=== PATIENT | female | born 1925 | race Caucasian/White ===

== ENCOUNTER 2016-09-11 14:57 | Emergency (ER) | payer BC ==
[~2016-09-11] VITALS: Ht 157.5 cm; Wt 69.3 kg
[~2016-09-11 14:57] MED LIST: ACET1TAB84 PO; AMLO-110 PO; ASPI-427 PO; CLOP1TAB5 PO; CYM/30 PO; DULO60CA44 PO; LISI10TA PO; LMC25 PO; LPR25 PO; MULT1CAP16 PO; NITR0.4S UT; OMEG12006 PO; PANT1TAB48 PO
[2016-09-11 15:04] VITALS: Ht 157.5 cm; Wt 69.3 kg
[2016-09-11] MEDS ORDERED: ACET-1256 PO (17:31)
[2016-09-11] MEDS ORDERED: CALC-452 PO (17:31)
[2016-09-11] MEDS ORDERED: SODIUM CHLORIDE 0.9% 1000ML 1,000 ML IV STA (17:33)
[2016-09-11] MEDS ORDERED: ACETAMINOPHEN 500 MG TAB PO STA (17:33)
[2016-09-11 18:13] LABS: BASO % 0.5 %; BASO ABS # 0.03 K/uL (0-0.2); COMPLETE YES; EOS % 1.8 %; HEMATOCRIT 33.2 % (37-47); IG% 0.3 %; LYMPH ABS # 1.69 K/uL (1.2-3.4); MEAN CORPUSCULAR HEMOGLOBIN 29.9 pg (25-34); MEAN CORPUSCULAR HGB CONC 32.8 g/dl (32-36); MEAN PLATELET VOLUME 9.7 fL (7.4-10.4); MONO % 12.3 %; NEUT % 57.1 %; PLATELET COUNT 264 K/uL (130-400); RED BLOOD COUNT 3.65 M/uL (4.2-5.4); WHITE BLOOD COUNT 6.04 K/uL (4.8-10.8)
[2016-09-11 18:31] LABS: BUN/CREATININE RATIO 16.3 (10-20); CALCIUM 9.1 mg/dl (8.5-10.1); CREATININE 1.1 mg/dl (0.60-1.20); POTASSIUM 4.1 mmol/L (3.5-5.1)
--- NOTE | 2016-09-11 18:39 | DIAGNOSTIC IMAGING REPORT ---
CHEST ONE VIEW PORTABLE HISTORY: Cough. Evaluate Fever/Sepsis COMPARISON: Chest 05/06/2014. Chest CT 06/30/2016. FINDINGS: The lungs are clear. No pleural effusions. No pneumothorax. The heart remains mildly enlarged. IMPRESSION: No acute process. Stable mild cardiomegaly. Electronically signed by: Devon Ramires M.D. 09/11/2016 6:38 PM Dictated Date/Time: 09/11/2016 6:36 PM
--- NOTE | 2016-09-11 19:14 | EMERGENCY ROOM VISIT NOTE ---
History Report prepared by Hamlet: Michael Toledo Under the Supervision of: Dr. Roberto Carlos Velásquez D.O. First contact with patient: 17:30 Chief Complaint: COUGH Stated Complaint: DIFFICULTY BREATHING, COUGH, SORETHROAT Nursing Triage Summary: pt reports cough, congestion and sore throat for approx 1 week, + mucus production clear in color History of Present Illness The patient is a 89 year old female who presents to the Emergency Room with complaints of a persistent productive cough beginning 3 days ago. Per son, the patient has also complained of intermittent episodes of dizziness, headache, and sore throat. The patient denies noticing any rashes on her body. She is on Plavix. Source of History: patient, family (son) Onset: 3 days ago Quality: other (productive cough) Timing: other (persistent) Associated Symptoms: + headache, + sorethroat, No rash Note: The patient has complained of intermittent episodes of dizziness. Review of Systems See HPI for pertinent positives & negatives. A total of 10 systems reviewed and were otherwise negative. Past Medical & Surgical Medical Problems: (1) Abdominal pain (2) Altered mental status (3) Chest pain (4) Diarrhea (5) Essential hypertension (6) Headache (7) Heart disease (8) Kidney disease (9) Myocardial infarction (10) Neck pain (11) Right ear pain (12) Right ear pain (13) Swallowing problem Surgical Problems: (1) History of spinal surgery Family History Diabetes mellitus FH: heart disease Hypertension Kidney disease Social History Smoking Status: Never Smoker Alcohol Use: none Drug Use: none Marital Status: Housing Status: lives alone Occupation Status: retired Current/Historical Medications Scheduled Acetaminophen (Tylenol), 500-1,000 MG PO Q8 Amlodipine (Norvasc), 5 MG PO QPM Aspirin (Ecotrin Regular Strength), 650 MG PO BID Calcium Carbonate-Cholecalcife (Calcium 600 + D 600-200 mg-Unit), 1 TAB PO BID Clopidogrel Bisulfate (Plavix), 75 MG PO QPM Duloxetine HCl (Cymbalta), 30 MG PO QPM Duloxetine Hcl (Cymbalta), 60 MG PO QAM Lamotrigine (Lamotrigine), 50 MG PO DAILY Lisinopril (Prinivil), 10 MG PO DAILY Metoprolol Tartrate (Lopressor), 25 MG PO DAILY Nitroglycerin (Nitrostat), 0.4 MG UT PRN Pres[place]-3 Fatty Acids (Presho 3), 1,000 MG PO BID Pantoprazole (Protonix), 40 MG PO DAILY Allergies Coded Allergies: Cefuroxime (Verified Allergy, Unknown, RASH, 09/11/16) Erythromycin (Verified Allergy, Unknown, RASH, 09/11/16) Iodine (Verified Allergy, Unknown, 09/11/16) Macrolides (Verified Allergy, Unknown, "MYCINS" ALLERGY, PT UNSURE OF RXN , 09/11/16) Morphine (Verified Allergy, Unknown, 09/11/16) Propoxyphene (Verified Allergy, Unknown, "SICK STROKE" WHAT DOES THIS MEAN ???, 09/11/16) Alcohol (Verified Adverse Reaction, Severe, TONGUE THICK, 09/11/16) Codeine (Verified Adverse Reaction, Intermediate, cant sleep, 09/11/16) Sulfa Drugs (Verified Adverse Reaction, Intermediate, N&V, 09/11/16) Shrimp (Verified Adverse Reaction, Unknown, NAUSEA, 09/11/16) Physical Exam Vital Signs Date Time Temp Pulse Resp B/P Pulse Ox O2 Delivery O2 Flow Rate FiO2 09/11/16 18:01 61 18 164/74 95 Room Air 09/11/16 17:51 60 09/11/16 15:04 36.4 72 20 114/75 98 Room Air Physical Exam CONSTITUTIONAL/VITAL SIGNS: Reviewed / noted above. GENERAL: Non-toxic in appearance. INTEGUMENTARY: Warm, dry, and [place]. HEAD: Normocephalic. EYES: without scleral icterus or trauma. ENT/OROPHARYNX: Mild posterior pharyngeal erythema. No exudate. LYMPHADENOPATHY/NECK: Is supple without lymphadenopathy or meningismus. RESPIRATORY: Lungs clear and equal. CARDIOVASCULAR: Regular rate and rhythm. GI/ABDOMEN: Soft and nontender. No organomegaly or pulsatile mass. No rebound or guarding. Normal bowel sounds. EXTREMITIES: Warm and well perfused. BACK: No CVA tenderness. NEUROLOGICAL: Intact without focal deficits. PSYCHIATRIC: normal affect. MUSCULOSKELETAL: Normally developed with good muscle tone. Medical Decision & Procedures ER Provider Diagnostic Interpretation: X ray results and stated below per my interpretation and radiology interpretation. CHEST ONE VIEW PORTABLE FINDINGS: The lungs are clear. No pleural effusions. No pneumothorax. The heart remains mildly enlarged. IMPRESSION: No acute process. Stable mild cardiomegaly. Electronically signed by: Devon Ramires M.D. 09/11/2016 6:38 PM Laboratory Results 09/11/16 17:53 Red Blood Count 3.65, Mean Corpuscular Volume 91.0, Mean Corpuscular Hemoglobin 29.9, Mean Corpuscular Hemoglobin Concent 32.8, Mean Platelet Volume 9.7, Neutrophils (%) (Auto) 57.1, Lymphocytes (%) (Auto) 28.0, Monocytes (%) (Auto) 12.3, Eosinophils (%) (Auto) 1.8, Basophils (%) (Auto) 0.5, Neutrophils # (Auto ) 3.45, Lymphocytes # (Auto) 1.69, Monocytes # (Auto) 0.74, Eosinophils # (Auto ) 0.11, Basophils # (Auto) 0.03 09/11/16 17:53 Test 09/11/16 17:53 White Blood Count 6.04 K/uL (4.8-10.8) Red Blood Count 3.65 M/uL (4.2-5.4) Hemoglobin 10.9 g/dL (12.0-16.0) Hematocrit 33.2 % (37-47) Mean Corpuscular Volume 91.0 fL (80-100) Mean Corpuscular Hemoglobin 29.9 pg (25-34) Mean Corpuscular Hemoglobin Concent 32.8 g/dl (32-36) Platelet Count 264 K/uL (130-400) Mean Platelet Volume 9.7 fL (7.4-10.4) Neutrophils (%) (Auto) 57.1 % Lymphocytes (%) (Auto) 28.0 % Monocytes (%) (Auto) 12.3 % Eosinophils (%) (Auto) 1.8 % Basophils (%) (Auto) 0.5 % Neutrophils # (Auto) 3.45 K/uL (1.4-6.5) Lymphocytes # (Auto) 1.69 K/uL (1.2-3.4) Monocytes # (Auto) 0.74 K/uL (0.11-0.59) Eosinophils # (Auto) 0.11 K/uL (0-0.5) Basophils # (Auto) 0.03 K/uL (0-0.2) RDW Standard Deviation 46.9 fL (36.4-46.3) RDW Coefficient of Variation 14.0 % (11.5-14.5) Immature Granulocyte % (Auto) 0.3 % Immature Granulocyte # (Auto) 0.02 K/uL (0.00-0.02) Anion Gap 8.0 mmol/L (3-11) Est Creatinine Clear Calc Drug Dose 31.6 ml/min Estimated GFR () 51.5 Estimated GFR (Non- 44.5 BUN/Creatinine Ratio 16.3 (10-20) Calcium Level 9.1 mg/dl (8.5-10.1) Influenza Type A Antigen Neg for Influ A (NEG) Influenza Type B Antigen Neg for Influ B (NEG) Laboratory results as stated above per my review. Medications Administered Medications (Trade) Dose Ordered Sig/Lauren Route Start Time Stop Time Status Last Admin Dose Admin Acetaminophen 1000 mg 1,000 mg NOW STAT PO 09/11/16 17:33 09/11/16 17:36 DC 09/11/16 17:45 1,000 MG Sodium Chloride (Nss 1000ml) 1,000 ml @ 999 mls/hr Q1H1M STAT IV 09/11/16 17:33 09/11/16 18:33 DC 09/11/16 17:33 999 MLS/HR ED Course 1730: Previous medical records were reviewed. The patient was evaluated in room B2. A complete history and physical examination was performed. 1733: Ordered NSS 1000 mL @ 999 mL/hr IV, Tylenol Tab 1000 mg PO. 1915: On reevaluation, the patient is resting comfortably. I discussed the results and findings with the patient. She verbalized agreement of the treatment plan. She was discharged home. Medical Decision Differential includes viral illness, influenza, streptococcal pharyngitis, meningitis, pneumonia, sinusitis, UTI, pyelonephritis, otitis media. This is an 89-year-old female who presents to the ED with a chief complaint of a cough for the past 3 days. She also complains of a sore throat and a headache and has some dizzy spells. She might be dehydrated. Her vital signs are normal. She is afebrile. Her physical exam was normal. She has some mild posterior oropharyngeal erythema without exudate. Chest x-ray is negative for acute disease. CBC is unremarkable. PRP is normal. Flu swab was negative. The patient was treated with IV fluids and by mouth Tylenol. She is felt to be stable for discharge and outpatient follow-up. Impression Primary Impression: Viral syndrome Additional Impression: Cough Scribe Attestation The scribe's documentation has been prepared under my direction and personally reviewed by me in its entirety. I confirm that the note above accurately reflects all work, treatment, procedures, and medical decision making performed by me. Departure Information Dispostion Home / Self-Care Referrals Tish Buenrostro DO (PCP) Patient Instructions A Signature Page, ED Viral Syndrome, My [facility] Additional Instructions Follow-up with your doctor for further care and evaluation in 1-2 days. Return to the emergency department for worsening or new symptoms or any concerns. You have been examined and treated today on an emergency basis only. This is not a substitute for, or an effort to provide, complete comprehensive medical care. It is impossible to recognize and treat all injuries or illnesses in a single emergency department visit. It is therefore important that you follow up closely with your doctor. Call as soon as possible for an appointment. Problem Qualifiers
[2016-09-11 19:31] VITALS: BP 134/60; PULSE 69; TEMP 36.4; O2SAT 95
[2017-01-31] MEDS ORDERED: CPR250 PO (10:41)
[2017-01-31] MEDS ORDERED: METO25TA56 PO (11:50)
== END 2016-09-11 19:32 | disposition home or self-care (01) ==
LOC: C.EDB 14:59
DX: B34.9 Viral infection, unspecified (principal); R05 Cough; I10 Essential (primary) hypertension; I25.2 Old myocardial infarction; R42 Dizziness and giddiness; Z79.02 Long term (current) use of antithrombotics/antiplatelets; Z79.82 Long term (current) use of aspirin; Z79.899 Other long term (current) drug therapy

== ENCOUNTER → 2017-01-10 | Outpatient (CLI) | payer BC ==
[~2017-01-10] MED LIST changes: +ACET-1256 PO; -ACET1TAB84 PO; +CALC-452 PO; +CIPR250T5 PO; +METO25TA56 PO; -MULT1CAP16 PO; +RISP0.258 PO; +RISP1TAB68 PO; +[UNRECOGNIZED DRUG - CODE] IM
[2017-01-10 12:54] LABS: ESTIMATED AVERAGE GLUCOSE 120 mg/dl; HA1C FLAG Normal (Normal)
[2017-01-10 13:08] LABS: HEMATOCRIT 33.2 % (37-47); MEAN CELL VOLUME 93.3 fL (80-100); MEAN CORPUSCULAR HEMOGLOBIN 30.1 pg (25-34); MEAN CORPUSCULAR HGB CONC 32.2 g/dl (32-36); MEAN PLATELET VOLUME 10.3 fL (7.4-10.4); PLATELET COUNT 316 K/uL (130-400); RED BLOOD COUNT 3.56 M/uL (4.2-5.4); WHITE BLOOD COUNT 5.94 K/uL (4.8-10.8)
[2017-01-10 15:39] LABS: BLOOD UREA NITROGEN 42 mg/dl (7-18); BUN/CREATININE RATIO 41.9 (10-20); CALCIUM 9.5 mg/dl (8.5-10.1); CARBON DIOXIDE 29 mmol/L (21-32); CHLORIDE 104 mmol/L (98-107); GLUCOSE 88 mg/dl (70-99); POTASSIUM 4.7 mmol/L (3.5-5.1); SODIUM 140 mmol/L (136-145)
--- NOTE | 2017-01-16 08:28 | CODING QUERY MEDICAL NECESSITY ---
CQSUPPORTING DIAGNOSIS NEEDED A supporting diagnosis is required for the test/procedure performed on this patient in order for us to be reimbursed by the patient's insurance. Please provide a supporting diagnosis for the following test/procedure listed below next to the test name along with your signature. *If there is no additional diagnosis for this patient that would support the following test/procedure please document that below next to the test/procedure. Test(s)/Procedure(s) that require a supporting diagnosis: DOS 01/10/17 GLYCATED HEMOGLOBIN Provider Signature: Date: Thank you Jaylyn Arita [employer] Once completed, please kindly fax back to [phone] For questions please call [phone]
== END | disposition home or self-care (01) ==
LOC: C.LAB 10:36
PROVIDERS: ATTEND Family Medicine
DX: R73.03 Prediabetes (principal); I10 Essential (primary) hypertension; I25.10 Atherosclerotic heart disease of native coronary artery without angina pectoris; E55.9 Vitamin D deficiency, unspecified; E78.5 Hyperlipidemia, unspecified

== ENCOUNTER 2017-01-29 11:24 | Observation (INO) | payer BC ==
[~2017-01-29] VITALS: Ht 149.9 cm; Wt 65.9 kg
[~2017-01-29 11:24] MED LIST changes: -CIPR250T5 PO; -METO25TA56 PO; -RISP0.258 PO; -RISP1TAB68 PO; -[UNRECOGNIZED DRUG - CODE] IM
[2017-01-29 11:29] VITALS: Ht 149.9 cm; Wt 65.9 kg
[2017-01-29] MEDS ORDERED: SODIUM CHLORIDE 0.9% 1000ML 1,000 ML IV STA (12:48)
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
--- NOTE | 2017-01-29 13:24 | DIAGNOSTIC IMAGING REPORT ---
CT SCAN OF THE BRAIN WITHOUT IV CONTRAST CLINICAL HISTORY: Change in mental status. COMPARISON STUDY: CT of the brain dated 06/30/2016. TECHNIQUE: Unenhanced axial CT scan of the brain is performed from the vertex to the skull base. The patient was scanned twice due to motion artifact. CT DOSE: 1225.46 mGy.cm FINDINGS: Brain parenchyma: There are age-related involutional changes noting mild subcortical and periventricular microangiopathic change. There is no hemorrhage, mass effect, or evidence of acute territorial ischemia by CT criteria. Temple-white matter is preserved. No extra-axial fluid collection is seen. Ventricles, sulci, cisterns: Prominent secondary to involutional change. Intracranial vasculature: There is atherosclerotic calcification of the cavernous carotid and vertebral arteries. Calvarium: The skeletal structures are osteopenic. No depressed calvarial fracture is seen. Sinuses and mastoids: The visualized paranasal sinuses are clear. There are large right and small left mastoid effusions. Orbits: The bony orbits are grossly intact. There are bilateral ocular lens implants. IMPRESSION: Senescent changes as above with no hemorrhage, mass effect, or evidence of acute territorial ischemia by CT criteria. Electronically signed by: Hong Arroyo M.D. 01/29/2017 1:23 PM Dictated Date/Time: 01/29/2017 1:21 PM
[2017-01-29 13:26] LABS: BASO % 0.2 %; BASO ABS # 0.02 K/uL (0-0.2); COMPLETE YES; EOS % 0.1 %; IG% 0.2 %; LYMPH % 19.8 %; MEAN CELL VOLUME 90.2 fL (80-100); MEAN CORPUSCULAR HEMOGLOBIN 30.2 pg (25-34); MEAN CORPUSCULAR HGB CONC 33.5 g/dl (32-36); MEAN PLATELET VOLUME 9.8 fL (7.4-10.4); MONO % 10.9 %; NEUT % 68.8 %; PLATELET COUNT 290 K/uL (130-400); RED BLOOD COUNT 3.77 M/uL (4.2-5.4)
[2017-01-29 13:47] LABS: BUN/CREATININE RATIO 20.8 (10-20); CALCIUM 9.6 mg/dl (8.5-10.1); CREATININE 1.2 mg/dl (0.60-1.20); MAGNESIUM 2.2 mg/dl (1.8-2.4); POTASSIUM 3.7 mmol/L (3.5-5.1)
[2017-01-29 13:58] LABS: CKMB/CK RATIO 3.1 (0-3.0); THYROID STIMULATING HORMONE 1.2 uIu/ml (0.300-4.500)
[2017-01-29 14:11] LABS: URINE APPEARANCE CLOUDY (CLEAR); URINE BILIRUBIN NEG (NEG); URINE COLOR YELLOW; URINE EPITHELIAL CELL AUTO 0-5 /lpf (0-5); URINE NITRITE NEG (NEG); URINE PH 6.5 (4.5-7.5); URINE SPECIFIC GRAVITY 1.015 (1.000-1.030); UROBILINOGEN NEG (NEG); ZZURINE CULT IF INDIC CATH YES
[2017-01-29 14:12] LABS: MANUAL MICROSCOPIC REQUIRED? NO; REVIEW REQ? NO
[2017-01-29] MEDS ORDERED: PIPERACILLIN/TAZOBACTAM 4.5 GM/100ML D5W IV STA (14:41)
--- NOTE | 2017-01-29 14:44 | DIAGNOSTIC IMAGING REPORT ---
SINGLE VIEW CHEST CLINICAL HISTORY: Change in mental status. FINDINGS: An AP, portable, upright chest radiograph is compared to study dated 09/11/2016 and correlated with chest CT dated 06/30/2016. The examination is degraded by portable technique and patient rotation. The heart is top normal for projection and there is atherosclerotic calcification of the thoracic aorta. Chronic residual thickening is similar to previous. The lungs and pleural spaces are otherwise clear. No pneumothorax is seen. The skeletal structures are osteopenic. The bony thorax is grossly intact. Arthritic change is noted in the shoulders and thoracic spine. Fusion hardware is seen in the lower cervical spine. IMPRESSION: No acute cardiopulmonary abnormality. Electronically signed by: Hong Arroyo M.D. 01/29/2017 2:43 PM Dictated Date/Time: 01/29/2017 2:41 PM
--- NOTE | 2017-01-29 19:27 | DIAGNOSTIC IMAGING REPORT ---
PELVIS 1 OR 2 VIEW ROUTINE CLINICAL HISTORY: Left hip pain COMPARISON STUDY: 11/03/2014 FINDINGS: Degenerative changes are present within the lower lumbar spine. Degenerative changes are present within the hips. No acute fractures are visualized. There is a stable lucency within the subcapital portion of the right proximal femur. Given the lack of change this is unlikely to represent an acute fracture. No destructive lesions are evident. IMPRESSION: 1. Degenerative change. No acute fractures. Electronically signed by: Kenneth Chandra M.D. 01/29/2017 7:26 PM Dictated Date/Time: 01/29/2017 7:24 PM
--- NOTE | 2017-01-29 19:28 | DIAGNOSTIC IMAGING REPORT ---
LEFT FEMUR 2 VIEWS ROUTINE CLINICAL HISTORY: left hip pain COMPARISON: None. DISCUSSION: Osteoarthritic changes involve the left hip. There are no acute fractures. No destructive lesions are visualized. IMPRESSION: 1. Degenerative change 2. No acute fractures. No destructive lesions are visualized. Electronically signed by: Kenneth Chandra M.D. 01/29/2017 7:27 PM Dictated Date/Time: 01/29/2017 7:26 PM
[2017-01-29] MEDS ORDERED: HEPARIN SOD 5000 UNIT/0.5 ML CARP SQ SCH (21:15)
[2017-01-29] MEDS ORDERED: NITROGLYCERIN 0.4 MG SL PER TAB CHARGE UT SCH (21:15)
[2017-01-29] MEDS ORDERED: DiphenhydrAMINE INJ 25 MG in SYRINGE 0 ML IV PRN (21:15)
[2017-01-29] MEDS ORDERED: ONDANSETRON INJ 2 MG/ML 2 ML VIAL IV PRN (21:15)
[2017-01-29] MEDS ORDERED: IV FLUIDS COMPLETED PRN (21:30)
[2017-01-29 23:00] VITALS: BP 144/63; PULSE 88; TEMP 37.2; O2SAT 95
[2017-01-29] MEDS ORDERED: DiphenhydrAMINE HCL 50 MG/ML VIAL IV PRN (23:00)
[2017-01-29] MEDS: CEFTRIAXONE SOD INJ 1 GM in DEXTROSE 5% ADD-VANTAGE 50ML 50 ML IV SCH (23:33)
[2017-01-29] MEDS: ACETAMINOPHEN 325 MG TAB PO SCH (23:34)
--- NOTE | 2017-01-30 00:08 | History and Physical ---
History & Physical Date & Time of Service: January 29, 2017 at 23:52 Chief Complaint: Metabolic Encephalopathy, Uti Primary Care Physician: Tish Pitts DO History of Present Illness Source: family, hospital records This is an 89 yo f with progressive dementia that lives at home alone that is presenting to us with ALOC and UTI. The patient's son completed the history as she is nonverbal. According to this over the past two weeks the patient has had increasing paranoia and agitation. He had gotten multiple calls from the aides and meals on wheels that visit her that "something was not right." The son states that she has been dozing off frequently throughout the day which is not her baseline. Today she had an acute onset of paranoia and had called the maxillofacial prosthodontist. She was then found wandering approx a mile away from home was unable to state why she had left, where she was going etc. During the interview the patient was somnolent but arousable however was nonverbal. The son states that there is a lot of concerns as she [place] with minimal access to help. He does note that her ADLs have been degrading slowly; unable to cook for self, incontinent. Her sister apparently progressed in a similar manner. She was evaluated in the ED and she as found to have a UTI. It was decided because of the UTI and degrading mentation she would be admitted to the hospital for further evaluation. Past Medical/Surgical History Medical Problems: (1) Abdominal pain Status: Resolved (2) Altered mental status Status: Resolved (3) Chest pain Status: Resolved (4) Diarrhea Status: Resolved (5) Essential hypertension Status: Chronic (6) Headache Status: Resolved (7) Heart disease Status: Chronic (8) Kidney disease Status: Chronic (9) Myocardial infarction Status: Resolved (10) Neck pain Status: Resolved (11) Right ear pain Status: Resolved (12) Right ear pain Status: Resolved (13) Swallowing problem Status: Chronic Surgical Problems: (1) History of spinal surgery Status: Resolved A fibb rate controlled Depression Family History Diabetes mellitus FH: heart disease Hypertension Kidney disease Social History Smoking Status: Unknown if Ever Smoked Smokeless Tobacco Use: No Alcohol Use: none Drug Use: none Marital Status: Housing status: lives alone Occupational Status: retired Immunizations History of Influenza Vaccine: Yes Influenza Vaccine Date: Sep 27, 2006 History of Tetanus Vaccine?: Yes History of Pneumococcal: Yes Pneumococcal Date: Nov 25, 2005 History of Hepatitis B Vaccine: No Multi-Drug Resistant Organisms History of MDRO: No Allergies Coded Allergies: Cefuroxime (Verified Allergy, Unknown, RASH, 01/29/17) Erythromycin (Verified Allergy, Unknown, RASH, 01/29/17) Iodine (Verified Allergy, Unknown, 01/29/17) Macrolides (Verified Allergy, Unknown, "MYCINS" ALLERGY, PT UNSURE OF RXN , 01/29/17) Morphine (Verified Allergy, Unknown, 01/29/17) Propoxyphene (Verified Allergy, Unknown, "SICK STROKE" WHAT DOES THIS MEAN ???, 01/29/17) Alcohol (Verified Adverse Reaction, Severe, TONGUE THICK, 01/29/17) Codeine (Verified Adverse Reaction, Intermediate, cant sleep, 01/29/17) Sulfa Drugs (Verified Adverse Reaction, Intermediate, N&V, 01/29/17) Shrimp (Verified Adverse Reaction, Unknown, NAUSEA, 01/29/17) Home Medications Scheduled Acetaminophen (Tylenol), 500-1,000 MG PO Q8 Amlodipine (Norvasc), 5 MG PO QPM Aspirin (Ecotrin Regular Strength), 650 MG PO BID Calcium Carbonate-Cholecalcife (Calcium 600 + D 600-200 mg-Unit), 1 TAB PO BID Clopidogrel Bisulfate (Plavix), 75 MG PO QPM Duloxetine HCl (Cymbalta), 30 MG PO QPM Duloxetine Hcl (Cymbalta), 60 MG PO QAM Lamotrigine (Lamotrigine), 50 MG PO DAILY Lisinopril (Prinivil), 10 MG PO DAILY Metoprolol Tartrate (Lopressor), 25 MG PO DAILY Nitroglycerin (Nitrostat), 0.4 MG UT PRN [place]-3 Fatty Acids ([place] 3), 1,000 MG PO BID Pantoprazole (Protonix), 40 MG PO DAILY Review of Systems Unable to complete as patient is nonverbal Physical Exam Vital Signs Date Time Temp Pulse Resp B/P Pulse Ox O2 Delivery O2 Flow Rate FiO2 01/29/17 23:00 37.2 88 16 144/63 95 Room Air 01/29/17 22:49 Room Air 01/29/17 22:03 83 16 149/83 93 01/29/17 20:16 91 16 108/64 92 Room Air 01/29/17 19:39 77 16 137/65 93 Room Air 01/29/17 18:02 86 18 126/70 96 Room Air 01/29/17 17:52 79 01/29/17 16:33 83 18 138/81 98 Room Air 01/29/17 15:35 83 18 133/96 98 Room Air 01/29/17 14:48 79 18 156/77 95 Room Air 01/29/17 14:11 87 16 167/72 97 Room Air 01/29/17 13:40 93 21 170/89 98 Room Air 01/29/17 13:36 88 01/29/17 11:34 93 01/29/17 11:29 36.5 95 19 156/94 96 Room Air General Appearance: no apparent distress, + pertinent finding (resting in bed comfortably) Head: normocephalic, atraumatic Eyes: normal inspection ENT: normal ENT inspection Neck: supple Respiratory/Chest: normal breath sounds, no respiratory distress, no accessory muscle use, + decreased breath sounds (bilat bases) Cardiovascular: + systolic murmur (3/6), + irregularly irregular Abdomen/GI: normal bowel sounds, non tender, soft Back: normal inspection Extremities/Musculoskelatal: no calf tenderness, no pedal edema Neurologic/Psych: + pertinent finding (somnolent ) Skin: normal color, warm/dry, no rash Lymphatic: no adenopathy Diagnostics Laboratory Results Results Past 24 Hours Test 01/29/17 13:01 01/29/17 13:06 01/29/17 13:30 Range/Units White Blood Count 8.10 4.8-10.8 K/uL Red Blood Count 3.77 4.2-5.4 M/uL Hemoglobin 11.4 12.0-16.0 g/dL Hematocrit 34.0 37-47 % Mean Corpuscular Volume 90.2 80-100 fL Mean Corpuscular Hemoglobin 30.2 25-34 pg Mean Corpuscular Hemoglobin Concent 33.5 32-36 g/dl Platelet Count 290 130-400 K/uL Mean Platelet Volume 9.8 7.4-10.4 fL Neutrophils (%) (Auto) 68.8 % Lymphocytes (%) (Auto) 19.8 % Monocytes (%) (Auto) 10.9 % Eosinophils (%) (Auto) 0.1 % Basophils (%) (Auto) 0.2 % Neutrophils # (Auto) 5.57 1.4-6.5 K/uL Lymphocytes # (Auto) 1.60 1.2-3.4 K/uL Monocytes # (Auto) 0.88 0.11-0.59 K/uL Eosinophils # (Auto) 0.01 0-0.5 K/uL Basophils # (Auto) 0.02 0-0.2 K/uL RDW Standard Deviation 45.5 36.4-46.3 fL RDW Coefficient of Variation 13.9 11.5-14.5 % Immature Granulocyte % (Auto) 0.2 % Immature Granulocyte # (Auto) 0.02 0.00-0.02 K/uL Sodium Level 141 136-145 mmol/L Potassium Level 3.7 3.5-5.1 mmol/L Chloride Level 102 98-107 mmol/L Carbon Dioxide Level 28 21-32 mmol/L Anion Gap 11.0 3-11 mmol/L Blood Urea Nitrogen 25 7-18 mg/dl Creatinine 1.20 0.60-1.20 mg/dl Est Creatinine Clear Calc Drug Dose 26.2 ml/min Estimated GFR () 46.4 Estimated GFR (Non- 40.0 BUN/Creatinine Ratio 20.8 10-20 Random Glucose 96 70-99 mg/dl Calcium Level 9.6 8.5-10.1 mg/dl Magnesium Level 2.2 1.8-2.4 mg/dl Total Bilirubin 0.8 0.2-1 mg/dl Direct Bilirubin 0.1 0-0.2 mg/dl Aspartate Amino Transf (AST/SGOT) 25 15-37 U/L Alanine Aminotransferase (ALT/SGPT) 12 12-78 U/L Alkaline Phosphatase 129 45-117 U/L Ammonia 11.0 11-32 umol/L Total Creatine Kinase 201 26-192 U/L Creatine Kinase MB 6.3 0.5-3.6 ng/ml Creatine Kinase MB Ratio 3.1 0-3.0 Total Protein 8.3 6.4-8.2 gm/dl Albumin 4.0 3.4-5.0 gm/dl Thyroid Stimulating Hormone (TSH) 1.200 0.300-4.500 uIu/ml Bedside Troponin I 0.020 0-0.045 ng/ml Urine Color YELLOW Urine Appearance CLOUDY CLEAR Urine pH 6.5 4.5-7.5 Urine Specific [place] 1.015 1.000-1.030 Urine Protein 1+ NEG Urine Glucose (UA) NEG NEG Urine Ketones 1+ NEG Urine Occult Blood TRACE NEG Urine Nitrite NEG NEG Urine Bilirubin NEG NEG Urine Urobilinogen NEG NEG Urine Leukocyte Esterase LARGE NEG Urine WBC (Auto) >30 0-5 /hpf Urine RBC (Auto) 0-4 0-4 /hpf Urine Hyaline Casts (Auto) 1-5 0-5 /lpf Urine Epithelial Cells (Auto) 0-5 0-5 /lpf Urine Bacteria (Auto) 4+ NEG Microbiology Results 01/29/17 Urine Culture, Received Pending Diagnostic Radiology [~ rep ct add3]] LEFT FEMUR 2 VIEWS ROUTINE CLINICAL HISTORY: left hip pain COMPARISON: None. DISCUSSION: Osteoarthritic changes involve the left hip. There are no acute fractures. No destructive lesions are visualized. IMPRESSION: 1. Degenerative change 2. No acute fractures. No destructive lesions are visualized. [~ rep ct add3]] PELVIS 1 OR 2 VIEW ROUTINE CLINICAL HISTORY: Left hip pain COMPARISON STUDY: 11/03/2014 FINDINGS: Degenerative changes are present within the lower lumbar spine. Degenerative changes are present within the hips. No acute fractures are visualized. There is a stable lucency within the subcapital portion of the right proximal femur. Given the lack of change this is unlikely to represent an acute fracture. No destructive lesions are evident. IMPRESSION: 1. Degenerative change. No acute fractures. [~ rep ct add3]] SINGLE VIEW CHEST CLINICAL HISTORY: Change in mental status. FINDINGS: An AP, portable, upright chest radiograph is compared to study dated 09/11/2016 and correlated with chest CT dated 06/30/2016. The examination is degraded by portable technique and patient rotation. The heart is top normal for projection and there is atherosclerotic calcification of the thoracic aorta. Chronic residual thickening is similar to previous. The lungs and pleural spaces are otherwise clear. No pneumothorax is seen. The skeletal structures are osteopenic. The bony thorax is grossly intact. Arthritic change is noted in the shoulders and thoracic spine. Fusion hardware is seen in the lower cervical spine. IMPRESSION: No acute cardiopulmonary abnormality. [~ rep ct add3]] CT SCAN OF THE BRAIN WITHOUT IV CONTRAST CLINICAL HISTORY: Change in mental status. COMPARISON STUDY: CT of the brain dated 06/30/2016. TECHNIQUE: Unenhanced axial CT scan of the brain is performed from the vertex to the skull base. The patient was scanned twice due to motion artifact. CT DOSE: 1225.46 mGy.cm FINDINGS: Brain parenchyma: There are age-related involutional changes noting mild subcortical and periventricular microangiopathic change. There is no hemorrhage, mass effect, or evidence of acute territorial ischemia by CT criteria. Temple-white matter is preserved. No extra-axial fluid collection is seen. Ventricles, sulci, cisterns: Prominent secondary to involutional change. Intracranial vasculature: There is atherosclerotic calcification of the cavernous carotid and vertebral arteries. Calvarium: The skeletal structures are osteopenic. No depressed calvarial fracture is seen. Sinuses and mastoids: The visualized paranasal sinuses are clear. There are large right and small left mastoid effusions. Orbits: The bony orbits are grossly intact. There are bilateral ocular lens implants. IMPRESSION: Senescent changes as above with no hemorrhage, mass effect, or evidence of acute territorial ischemia by CT criteria. EKG Sinus rhythm with Premature atrial complexes Left bundle branch block QTc 504 Impression Assessment and Plan This is an 89 yo f that is suffering from metabolic encephalopathy most likely secondary to UTI Metabolic encephalopathy secondary to UTI - Med surg admission - Rocephin daily - BMP and CBC in the am - PT/Ot to assess for placement - Continue Cymbalta and lamotrigine Prolonged QTc - Will repeat in the am to confirm - previous EKG did not reveal a prolonged QTc - on cymbalta chronically and son states if she does not get her daily dose "she will go crazy" A fibb - Continue Metoprolol HTN - continue the Lisinopril and Metoprolol as noted above CAD - cont ASA and plavix GERD - continue protonix DVT prophylaxis - SCD , Heparin q12h DNR Advanced Directives Existing Living Will: Yes Existing Power of Rheumatology Specialist: Yes Resuscitation Status DO NOT RESUSCITATE VTE Prophylaxis VTE Risk Assessment Done? Y/N: Yes Risk Level: Moderate Given or contraindicated: Unfractionated heparin SQ Social Service Consult None Apply Note Total Time: Critical Care 30 - 74 minutes Additional Copies To Tish Pitts, DO Assessment and Plan Attending Addendum: I have physically seen and examined this patient, have directed their medical care, have supervised the medical residents activities, and agree with the H&P as noted above, with the following changes: NONE
[2017-01-30] MEDS: ACETAMINOPHEN 325 MG TAB PO SCH ×4 (06:01→22:30)
[2017-01-30 06:07] LABS: HEMATOCRIT 32.4 % (37-47); MEAN CELL VOLUME 91.5 fL (80-100); MEAN CORPUSCULAR HEMOGLOBIN 29.7 pg (25-34); MEAN CORPUSCULAR HGB CONC 32.4 g/dl (32-36); MEAN PLATELET VOLUME 9.4 fL (7.4-10.4); PLATELET COUNT 233 K/uL (130-400); RED BLOOD COUNT 3.54 M/uL (4.2-5.4); WHITE BLOOD COUNT 7.73 K/uL (4.8-10.8)
[2017-01-30 06:38] LABS: BUN/CREATININE RATIO 20.3 (10-20); MAGNESIUM 1.9 mg/dl (1.8-2.4); POTASSIUM 3.5 mmol/L (3.5-5.1)
[2017-01-30 07:22] VITALS: BP 155/66; PULSE 68; TEMP 36.8; O2SAT 96
[2017-01-30 08:00] VITALS: O2SAT 96
[2017-01-30] MEDS ORDERED: PNEUMOCOCCAL POLYSACCHARIDES 25 MCG/0.5 ML VIAL/SYR IM. ONE (08:00)
[2017-01-30] MEDS ORDERED: PNEUMOCOCCAL ADMINISTRATION CHARGE ONE (08:00)
[2017-01-30] MEDS: HEPARIN SOD 5000 UNIT/0.5 ML CARP SQ SCH ×2 (09:00→21:26)
[2017-01-30] MEDS: METOPROLOL TARTRATE 25 MG TAB PO SCH (09:11)
[2017-01-30] MEDS: PANTOprazole SOD 40 MG TAB PO SCH (09:11)
[2017-01-30] MEDS: LISINOPRIL 10 MG TAB PO SCH (09:11)
[2017-01-30] MEDS: OMEGA-3 (PURIFIED FISH OIL) 1 GM CAP PO SCH ×2 (09:12→21:22)
[2017-01-30] MEDS: DULOXETINE HCL 60 MG CAP PO SCH (09:12)
[2017-01-30] MEDS: ASPIRIN 325 MG ECTAB PO SCH ×2 (09:12→21:23)
[2017-01-30] MEDS: CALCIUM 600MG + VIT D 400 IU TAB PO SCH ×2 (09:12→21:24)
[2017-01-30 10:03] VITALS: BP 122/57; PULSE 79; O2SAT 96
--- NOTE | 2017-01-30 11:57 | Progress Note ---
Subjective Date of Service: Jan 30, 2017. Subjective Pt evaluation today including: conversation w/ patient, physical exam, lab review, review of inpatient medication list Pain: denies pain PO Intake: adequate Voiding: no voiding problems very pleasant patient with baseline dementia, no issues overnight sitting in chair this AM, disoriented and scored a 20 on mini mental exam appreciate help from medical student discussed plan with patient's son, would like to pursue placement she lives alone in farmhouse, has been falling, wondered off property at one point Problem List Medical Problems: (1) At risk for self injurious behavior Status: Acute (2) Contusion of right shoulder Status: Acute (3) Cough Status: Acute (4) Syncope Status: Acute (5) Urinary tract infection Status: Acute (6) Viral syndrome Status: Acute Review of Systems Neurologic: + memory loss, + balance problems (admits to falls at home, no severe pain or injuries noted) All Other Systems: Reviewed and Negative Medications Current Inpatient Medications Medications (Trade) Dose Ordered Sig/Lauren Route Start Time Stop Time Status Last Admin Dose Admin Ceftriaxone Sodium 1 gm/ Dextrose 50 ml @ 100 mls/hr Q24H IV 01/29/17 23:00 02/08/17 22:59 01/29/17 23:33 100 MLS/HR Acetaminophen (Tylenol Tab) 650 mg Q8 PO 01/29/17 22:00 02/28/17 21:59 01/30/17 06:01 650 MG Amlodipine Besylate (Norvasc Tab) 5 mg QPM PO 01/30/17 21:00 03/01/17 20:59 Aspirin (Ecotrin Tab) 650 mg BID PO 01/30/17 09:00 03/01/17 08:59 01/30/17 09:12 650 MG Clopidogrel Bisulfate (plAVix TAB) 75 mg QPM PO 01/30/17 21:00 03/01/17 20:59 Duloxetine HCl (Cymbalta Cap) 30 mg QPM PO 01/30/17 21:00 03/01/17 20:59 Duloxetine HCl (Cymbalta Cap) 60 mg QAM PO 01/30/17 09:00 03/01/17 08:59 01/30/17 09:12 60 MG Lamotrigine (Lamictal Tab) 50 mg DAILY PO 01/30/17 09:00 03/01/17 08:59 01/30/17 09:12 50 MG Lisinopril (Zestril Tab) 10 mg DAILY PO 01/30/17 09:00 03/01/17 08:59 01/30/17 09:11 10 MG Metoprolol Tartrate (Lopressor Tab) 25 mg DAILY PO 01/30/17 09:00 03/01/17 08:59 01/30/17 09:11 25 MG Nitroglycerin (Nitrostat Tab) 0.4 mg PRN UT 01/29/17 21:15 02/28/17 21:14 Pantoprazole Sodium (Protonix Tab) 40 mg DAILY PO 01/30/17 09:00 03/01/17 08:59 01/30/17 09:11 40 MG Calcium/Vitamin D (Caltrate Plus Tab) 1 tab BID PO 01/30/17 09:00 03/01/17 08:59 01/30/17 09:12 1 TAB Fish Oil ([place]-3 (Purified Fish Oil) Cap) 1 gm BID PO 01/30/17 09:00 03/01/17 08:59 01/30/17 09:12 1 GM Miscellaneous (Iv Fluids Completed) 1 ea PRN PRN N/A 01/29/17 21:30 01/29/18 21:29 Heparin Sodium (Porcine) (Heparin Sq 5000 Unit/0.5ml) 5,000 unit Q12H SQ 01/30/17 09:00 03/01/17 08:59 Objective Vital Signs Date Time Temp Pulse Resp B/P (MAP) Pulse Ox O2 Delivery O2 Flow Rate FiO2 01/30/17 10:03 79 96 01/30/17 08:00 96 Room Air 01/30/17 07:22 36.8 68 18 155/66 (95) 96 Room Air 01/29/17 23:00 37.2 88 16 144/63 (90) 95 Room Air 01/29/17 22:49 Room Air 01/29/17 22:03 83 16 149/83 93 01/29/17 20:16 91 16 108/64 92 Room Air 01/29/17 19:39 77 16 137/65 93 Room Air 01/29/17 18:02 86 18 126/70 96 Room Air 01/29/17 17:52 79 01/29/17 16:33 83 18 138/81 98 Room Air 01/29/17 15:35 83 18 133/96 98 Room Air 01/29/17 14:48 79 18 156/77 95 Room Air 01/29/17 14:11 87 16 167/72 97 Room Air 01/29/17 13:40 93 21 170/89 98 Room Air 01/29/17 13:36 88 Physical Exam General Appearance: WD/WN, no apparent distress Eyes: normal inspection, EOMI, sclerae normal Neck: supple, no adenopathy, no JVD, trachea midline Respiratory/Chest: chest non-tender, lungs clear, normal breath sounds, no respiratory distress, no accessory muscle use Cardiovascular: regular rate, rhythm, no edema, no gallop, no JVD, no murmur Abdomen: normal bowel sounds, non tender, soft, no organomegaly Extremities: normal range of motion, non-tender, normal inspection, no pedal edema, no calf tenderness, pelvis stable Neurologic/Psychiatric: 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 II-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 nml as tested, no motor/sensory deficits, alert, normal mood/affect, + disoriented (oriented to person, unaware of place and time, poor short term memory) Skin: normal color, warm/dry, no rash Laboratory Results Date/Time Source Procedure Growth Status 01/29/17 13:30 Urine,Catheterized Urine Culture - Preliminary Escherichia Coli Resulted Last 24 Hours Test 01/29/17 13:01 01/29/17 13:06 01/29/17 13:30 01/30/17 05:36 White Blood Count 8.10 K/uL Red Blood Count 3.77 M/uL Hemoglobin 11.4 g/dL Hematocrit 34.0 % Mean Corpuscular Volume 90.2 fL Mean Corpuscular Hemoglobin 30.2 pg Mean Corpuscular Hemoglobin Concent 33.5 g/dl Platelet Count 290 K/uL Mean Platelet Volume 9.8 fL Neutrophils (%) (Auto) 68.8 % Lymphocytes (%) (Auto) 19.8 % Monocytes (%) (Auto) 10.9 % Eosinophils (%) (Auto) 0.1 % Basophils (%) (Auto) 0.2 % Neutrophils # (Auto) 5.57 K/uL Lymphocytes # (Auto) 1.60 K/uL Monocytes # (Auto) 0.88 K/uL Eosinophils # (Auto) 0.01 K/uL Basophils # (Auto) 0.02 K/uL RDW Standard Deviation 45.5 fL RDW Coefficient of Variation 13.9 % Immature Granulocyte % (Auto) 0.2 % Immature Granulocyte # (Auto) 0.02 K/uL Sodium Level 141 mmol/L Potassium Level 3.7 mmol/L Chloride Level 102 mmol/L Carbon Dioxide Level 28 mmol/L Anion Gap 11.0 mmol/L Blood Urea Nitrogen 25 mg/dl Creatinine 1.20 mg/dl Est Creatinine Clear Calc Drug Dose 26.2 ml/min Estimated GFR () 46.4 Estimated GFR (Non- 40.0 BUN/Creatinine Ratio 20.8 Random Glucose 96 mg/dl Calcium Level 9.6 mg/dl Magnesium Level 2.2 mg/dl Total Bilirubin 0.8 mg/dl Direct Bilirubin 0.1 mg/dl Aspartate Amino Transf (AST/SGOT) 25 U/L Alanine Aminotransferase (ALT/SGPT) 12 U/L Alkaline Phosphatase 129 U/L Ammonia 11.0 umol/L Total Creatine Kinase 201 U/L Creatine Kinase MB 6.3 ng/ml Creatine Kinase MB Ratio 3.1 Total Protein 8.3 gm/dl Albumin 4.0 gm/dl Thyroid Stimulating Hormone (TSH) 1.200 uIu/ml Bedside Troponin I 0.020 ng/ml Urine Color YELLOW Urine Appearance CLOUDY Urine pH 6.5 Urine Specific [place] 1.015 Urine Protein 1+ Urine Glucose (UA) NEG Urine Ketones 1+ Urine Occult Blood TRACE Urine Nitrite NEG Urine Bilirubin NEG Urine Urobilinogen NEG Urine Leukocyte Esterase LARGE Urine WBC (Auto) >30 /hpf Urine RBC (Auto) 0-4 /hpf Urine Hyaline Casts (Auto) 1-5 /lpf Urine Epithelial Cells (Auto) 0-5 /lpf Urine Bacteria (Auto) 4+ Prothrombin Time 11.0 SECONDS Prothromb Time International Ratio 1.0 Test 01/30/17 05:56 White Blood Count 7.73 K/uL Red Blood Count 3.54 M/uL Hemoglobin 10.5 g/dL Hematocrit 32.4 % Mean Corpuscular Volume 91.5 fL Mean Corpuscular Hemoglobin 29.7 pg Mean Corpuscular Hemoglobin Concent 32.4 g/dl RDW Standard Deviation 47.0 fL RDW Coefficient of Variation 14.1 % Platelet Count 233 K/uL Mean Platelet Volume 9.4 fL Sodium Level 140 mmol/L Potassium Level 3.5 mmol/L Chloride Level 105 mmol/L Carbon Dioxide Level 27 mmol/L Anion Gap 8.0 mmol/L Blood Urea Nitrogen 20 mg/dl Creatinine 1.00 mg/dl Est Creatinine Clear Calc Drug Dose 31.5 ml/min Estimated GFR () 57.8 Estimated GFR (Non- 49.9 BUN/Creatinine Ratio 20.3 Random Glucose 85 mg/dl Calcium Level 9.0 mg/dl Magnesium Level 1.9 mg/dl Assessment and Plan This is an 89 yo female with baseline dementia, more somnolent on admission, suggesting a metabolic encephalopathy on top of her dementia signs of UTI on initial testing, started on Rocephin Metabolic encephalopathy secondary to UTI continue Rocephin, afebrile, labs normal, urine culture growing E coli, follow up sensitivities Dementia: unclear etiology, but has been chronic and progressing likely unsafe to live at home, falling frequently and wondering off property close care from children but unable to be there 24 hours a day PT/OT assessments CM consulted for placement Prolonged QTc repeat EKG shows QTc of 486, was 504 on admission EKG also shows LBBB (chronic) and PVC's A fibb - Continue Metoprolol HTN - continue the Lisinopril and Metoprolol as noted above CAD - cont ASA and plavix GERD - continue protonix DVT prophylaxis - SCD , Heparin q12h DNR Plan: convert to PO antibiotics once final culture/sensitivities back, CM to work on SNF placement for patient's safety
--- NOTE | 2017-01-30 12:43 | Medical Student: [facility] ---
Med Student Progress Note Date of Service Jan 30, 2017. Subjective Pt evaluation today including: conversation w/ patient, conversation w/ family (son Bill via phone), physical exam, chart review, lab review, review of studies Pain: 2 PO Intake: poor Voiding: incontinence Ms Melina Link is a pleasantly demented 89 yo female brought to the ED yesterday after being found by police walking one mile from her home. She was found to have acute mental status deterioration secondary to a UTI. Antibiotics were started in the ED, and she appears to be returning to her baseline mental status today. She notes increased forgetfulness, and states that if she doesn't write things down, she forgets. She will often forget she is eating mid meal and leave food on her plate. Her son calls every morning at 8:00 am to remind her to take her pills, because she lives alone. She has [facility] come to her house for 3 hours 4x weekly and gets meals on wheels 3x weekly. Her son sees her daily but he states she is "alone for 18+ hours daily". He notes a sharp deterioration in her mental and physical health over the last 2-3 months. [facility] and [facility] have called him multiple times feeling uncomfortable about leaving her alone, as she has been acutely confused many times over the last few months. There were two calls to the police in the 12 hours prior to her admission, including one by the patient stating that 40 people dressed in clown suits were attacking her house, and the other made by someone alarmed when they saw an elderly woman walking with a walker alone in the middle of nowhere. Both the patient and her son note increased falls in the past few months, and Melina admits she still uses a stool on occasion. Her son does not feel she is safe at home anymore, and is working to get her more around the clock dementia care. Ms Link notes pain and burning with urination during the past 2 weeks. She notes her legs and back are sore today, likely secondary to her long walk yesterday. She denies headache, nausea, vomiting, diarrhea, constipation, chest pain or shortness of breath. Review of Systems Constitutional: No fever, No chills, No sweats, No weight loss, No weakness, No fatigue Eyes: + problem reported (watery eyes) ENT: + nasal symptoms (congestion, rhinorrhea), No problem reported Respiratory: No problem reported Cardiac: No problem reported Abdomen: No problem reported Musculoskeletal: + muscle pain (back and legs) Female : + dysuria, + incontinence Neurologic: + memory loss, + balance problems, No paralysis, No weakness, No numbness/tingling, No vertigo Psychiatric: No problem reported Heme: No problem reported Endo: No problem reported Skin: No problem reported Objective Vital Signs Date Time Temp Pulse Resp B/P (MAP) Pulse Ox O2 Delivery O2 Flow Rate FiO2 01/30/17 10:03 79 96 01/30/17 07:22 36.8 68 18 155/66 (95) 96 Room Air 01/29/17 23:00 37.2 88 16 144/63 (90) 95 Room Air 01/29/17 22:49 Room Air 01/29/17 22:03 83 16 149/83 93 01/29/17 20:16 91 16 108/64 92 Room Air 01/29/17 19:39 77 16 137/65 93 Room Air 01/29/17 18:02 86 18 126/70 96 Room Air 01/29/17 17:52 79 01/29/17 16:33 83 18 138/81 98 Room Air 01/29/17 15:35 83 18 133/96 98 Room Air 01/29/17 14:48 79 18 156/77 95 Room Air 01/29/17 14:11 87 16 167/72 97 Room Air 01/29/17 13:40 93 21 170/89 98 Room Air 01/29/17 13:36 88 Physical Exam Comments: Vitals: See above. Stable, borderline hypertensive. General: Tired-appearing elderly female. No acute distress. HEENT: NCAT, PERRLA, EOMI. MMM. No anterior or posterior cervical lymphadenopathy. Rhinorrhea noted. Eyes watery. CV: S1, S2, No MRG. Regular rate and rhythm. Peripheral pulses present and equal bilaterally. Resp: Lungs clear to auscultation in upper and lower lobes bilaterally. Abd: Soft, non-tender, non-distended. Active bowel sounds. MSK: Slight pain with palpation over lumbar and cervical spine, chronic soreness. No calf pain or tenderness. Neuro: Strength 5/5 in all extremities. Sensation intact. Some word-finding difficulties and forgetfulness during conversation. MSE 20, with forgetting county, season, year, month, and recall of words. Psych: Not anxious or depressed. Laboratory Results Last 24 Hours Test 01/29/17 13:01 01/29/17 13:06 01/29/17 13:30 01/30/17 05:36 White Blood Count 8.10 K/uL Red Blood Count 3.77 M/uL Hemoglobin 11.4 g/dL Hematocrit 34.0 % Mean Corpuscular Volume 90.2 fL Mean Corpuscular Hemoglobin 30.2 pg Mean Corpuscular Hemoglobin Concent 33.5 g/dl Platelet Count 290 K/uL Mean Platelet Volume 9.8 fL Neutrophils (%) (Auto) 68.8 % Lymphocytes (%) (Auto) 19.8 % Monocytes (%) (Auto) 10.9 % Eosinophils (%) (Auto) 0.1 % Basophils (%) (Auto) 0.2 % Neutrophils # (Auto) 5.57 K/uL Lymphocytes # (Auto) 1.60 K/uL Monocytes # (Auto) 0.88 K/uL Eosinophils # (Auto) 0.01 K/uL Basophils # (Auto) 0.02 K/uL RDW Standard Deviation 45.5 fL RDW Coefficient of Variation 13.9 % Immature Granulocyte % (Auto) 0.2 % Immature Granulocyte # (Auto) 0.02 K/uL Sodium Level 141 mmol/L Potassium Level 3.7 mmol/L Chloride Level 102 mmol/L Carbon Dioxide Level 28 mmol/L Anion Gap 11.0 mmol/L Blood Urea Nitrogen 25 mg/dl Creatinine 1.20 mg/dl Est Creatinine Clear Calc Drug Dose 26.2 ml/min Estimated GFR () 46.4 Estimated GFR (Non- 40.0 BUN/Creatinine Ratio 20.8 Random Glucose 96 mg/dl Calcium Level 9.6 mg/dl Magnesium Level 2.2 mg/dl Total Bilirubin 0.8 mg/dl Direct Bilirubin 0.1 mg/dl Aspartate Amino Transf (AST/SGOT) 25 U/L Alanine Aminotransferase (ALT/SGPT) 12 U/L Alkaline Phosphatase 129 U/L Ammonia 11.0 umol/L Total Creatine Kinase 201 U/L Creatine Kinase MB 6.3 ng/ml Creatine Kinase MB Ratio 3.1 Total Protein 8.3 gm/dl Albumin 4.0 gm/dl Thyroid Stimulating Hormone (TSH) 1.200 uIu/ml Bedside Troponin I 0.020 ng/ml Urine Color YELLOW Urine Appearance CLOUDY Urine pH 6.5 Urine Specific [place] 1.015 Urine Protein 1+ Urine Glucose (UA) NEG Urine Ketones 1+ Urine Occult Blood TRACE Urine Nitrite NEG Urine Bilirubin NEG Urine Urobilinogen NEG Urine Leukocyte Esterase LARGE Urine WBC (Auto) >30 /hpf Urine RBC (Auto) 0-4 /hpf Urine Hyaline Casts (Auto) 1-5 /lpf Urine Epithelial Cells (Auto) 0-5 /lpf Urine Bacteria (Auto) 4+ Prothrombin Time 11.0 SECONDS Prothromb Time International Ratio 1.0 Test 01/30/17 05:56 White Blood Count 7.73 K/uL Red Blood Count 3.54 M/uL Hemoglobin 10.5 g/dL Hematocrit 32.4 % Mean Corpuscular Volume 91.5 fL Mean Corpuscular Hemoglobin 29.7 pg Mean Corpuscular Hemoglobin Concent 32.4 g/dl RDW Standard Deviation 47.0 fL RDW Coefficient of Variation 14.1 % Platelet Count 233 K/uL Mean Platelet Volume 9.4 fL Sodium Level 140 mmol/L Potassium Level 3.5 mmol/L Chloride Level 105 mmol/L Carbon Dioxide Level 27 mmol/L Anion Gap 8.0 mmol/L Blood Urea Nitrogen 20 mg/dl Creatinine 1.00 mg/dl Est Creatinine Clear Calc Drug Dose 31.5 ml/min Estimated GFR () 57.8 Estimated GFR (Non- 49.9 BUN/Creatinine Ratio 20.3 Random Glucose 85 mg/dl Calcium Level 9.0 mg/dl Magnesium Level 1.9 mg/dl Assessment and Plan Assessment and Plan: Ms Melina Link is a pleasantly demented 89 yo female on hospital day two with acute metabolic encephalopathy and UTI. Individual assessment and plan are as follows: 1. UTI with metabolic encephalopathy: Received one dose of pip/tazo in ED, on Rocephin 1g qd since. Culture showing e coli. Will continue Rocephin. WBC and other labs wnl. No fevers. Notes persistent burning with urination. CK bumped, possibly due to fall or long walk down country [address] yesterday prior to being brought in by EMS. 2. Dementia: Moderate, progressing. Son states noted decline in last 2-3 months. Currently lives alone with [facility] 3 hours x 4 days per week, meals on wheels 3x weekly. MSE 20 today. Would recommend placement in dementia unit. PT/OT evals pending. 3. Chronic a fib: Continue metoprolol tartrate 25qd. 4. HTN: Continue amlodipine 5mg qpm. lisinopril 10mg qam. 5. Depression: Continue cymbalta 30 qpm, 60qam. 6. CAD: Continue clipidogrel 75mg qpm. Will discuss d/c asa 650 BID due to increased fall risk. 7. DVT Proph: SCDs, Heparin 5000 u q12. 8. Dispo: Continued admission pending placement in dementia unit. Will transition to PO abx pending sensitivities. Normal diet as tolerated. DNR. Continued [facility] stay due to: multiple IV medications needed, home environment unsafe for pt Discharge planning: residential facility (dementia unit?)
[2017-01-30 15:05] VITALS: BP 131/51; PULSE 66; TEMP 36.5; O2SAT 92
[2017-01-30] MEDS ORDERED: DULOXETINE (CYMBALTA) 30 MG CAP PO SCH (21:00)
[2017-01-30] MEDS ORDERED: CLOPIDOGREL BISULFATE 75 MG TAB PO SCH (21:00)
[2017-01-30] MEDS ORDERED: AMLODIPINE BESYLATE 5 MG TAB PO SCH (21:00)
[2017-01-30 23:00] VITALS: BP 131/70; PULSE 58; TEMP 36.4; O2SAT 99
[2017-01-30] MEDS: CEFTRIAXONE SOD INJ 1 GM in DEXTROSE 5% ADD-VANTAGE 50ML 50 ML IV SCH (23:03)
[2017-01-31] MEDS: ACETAMINOPHEN 325 MG TAB PO SCH (06:32)
[2017-01-31] MEDS: CALCIUM 600MG + VIT D 400 IU TAB PO SCH (07:45)
[2017-01-31] MEDS: ASPIRIN 325 MG ECTAB PO SCH (07:46)
[2017-01-31] MEDS: DULOXETINE HCL 60 MG CAP PO SCH (07:46)
[2017-01-31] MEDS: PANTOprazole SOD 40 MG TAB PO SCH (07:48)
[2017-01-31] MEDS: LISINOPRIL 10 MG TAB PO SCH (07:48)
[2017-01-31] MEDS: OMEGA-3 (PURIFIED FISH OIL) 1 GM CAP PO SCH (07:49)
[2017-01-31 09:55] VITALS: BP 142/76; PULSE 64; TEMP 36.4; O2SAT 98
[2017-01-31] MEDS ORDERED: CIPROFLOXACIN 250 MG TAB PO SCH (10:00)
[2017-01-31] MEDS: METOPROLOL TARTRATE 25 MG TAB PO SCH (10:20)
[2017-01-31] MEDS: HEPARIN SOD 5000 UNIT/0.5 ML CARP SQ SCH (10:22)
[2017-01-31] MEDS ORDERED: CIPR250T5 PO (10:41)
--- NOTE | 2017-01-31 10:44 | Discharge Instructions ---
Discharge Instructions Date of Service Jan 31, 2017. Admission Reason for Admission: Metabolic Encephalopathy, Uti Discharge Discharge Diagnosis / Problem: UTI causing mild encephalopathy, dementia Discharge Goals Goal(s): Improve function, Increase independence Activity Recommendations Activity Level: Assistance Required Lifting Limitations: none Exercise/Sports Limitations: as tolerated Shower/Bathe: no limitations . Additional Information Patient informed of condition: Yes Advance Directives: Yes DNR: Yes Level of Care: Skilled Communicable Disease: No Prognosis: Stable Oxygen at (LPM): no Keen Catheter: No Instructions / Follow-Up Instructions / Follow-Up Medications: - CIPRO: started for E. coli UTI, complete 6 more days for 7 day course, first dose tonight - ASPIRIN: this was stopped, patient was taking 650mg twice a day in addition to Plavix, not sure of any benefit from taking that much aspirin, especially with Plavix Patient was living alone, has progressive dementia and unable to complete her ADL's safely. Her son has been taking good care of her but more recently she has been falling at home. Her son requested placement primarily for her own safety. FOLLOW UP - physician at [facility] next week Current Hospital Diet Patient's current hospital diet: AHA Diet (Heart Healthy), Low Sodium Diet (2gm Na) Discharge Diet Recommended Diet: AHA Diet (Heart Healthy) Pending Studies Studies pending at discharge: no Physician Orders On Transfer POLST Discussion: Not Applicable Laboratory Results Hemoglobin A1c Test 01/10/17 10:46 Range/Units Estimated Average Glucose 120 mg/dl Hemoglobin A1c 5.8 H 4.5-5.6 % Medical Emergencies . Who to Call and When: Medical Emergencies: If at any time you feel your situation is an emergency, please call 911 immediately. . Non-Emergent Contact Non-Emergency issues call your: Primary Care Provider Call Non-Emergent contact if: you have any medication questions . . "Provider Documentation" section prepared by Gigi Noyola. . Core Measure Problem Core Measures: None [place] Drug Monitoring Program Search Results: no issues identified
[2017-01-31] MEDS ORDERED: METO25TA56 PO (11:50)
[2017-01-31 12:40] VITALS: BP 142/76; PULSE 64; TEMP 36.4; O2SAT 98
--- NOTE | 2017-01-31 12:40 | Discharge Summary ---
Discharge Summary Date of Service Jan 31, 2017. Discharge Summary Admission Date: January 29, 2017 at 21:16 Discharge Date: Jan 31, 2017 Discharge Disposition: detention facility Principal Diagnosis: Dementia with falls at home Problems/Secondary Diagnoses: UTI, E coli HTN Depression/Anxiety Immunizations: Have You Had Influenza Vaccine: Yes Influenza Vaccine Date: Sep 27, 2006 History of Tetanus Vaccine?: Yes History of Pneumococcal: Yes Pneumococcal Date: Nov 25, 2005 History of Hepatitis B Vaccine: No Procedures: none Consultations: none Medication Reconciliation New Medications: Metoprolol Tartrate (Lopressor) (Lopressor) 25 Mg Tab 0.5 TAB PO BID for 30 Days, #30 TAB 1 Refill Ciprofloxacin (Ciprofloxacin HCl) 250 Mg Tab 250 MG PO BID for 6 Days, #12 TAB 0 Refills Continued Medications: Acetaminophen (Tylenol) 500 Mg Tab 500-1000 MG PO Q8, TAB Amlodipine (Norvasc) 5 Mg Tab 5 MG PO QPM, TAB Calcium Carbonate-Cholecalcife (Calcium 600 + D 600-200 mg-Unit) 1 Tab Tab 1 TAB PO BID Clopidogrel Bisulfate (Plavix) 75 Mg Tab 75 MG PO QPM, TAB Duloxetine Hcl (Cymbalta) 60 Mg Cap 60 MG PO QAM, CAP Lamotrigine (Lamotrigine) 25 Mg Tab 50 MG PO DAILY, #180 Lisinopril (Prinivil) 10 Mg Tab 10 MG PO DAILY, TAB Nitroglycerin (Nitrostat) 0.4 Mg Sub 0.4 MG UT PRN, BTL [place]-3 Fatty Acids ([place] 3) 1 Cap Cap 1000 MG PO BID Pantoprazole (Protonix) 40 Mg Tab 40 MG PO DAILY, TAB Discontinued Medications: Aspirin (Ecotrin Regular Strength) 325 Mg Tab 650 MG PO BID Duloxetine HCl (Cymbalta) 30 Mg Cap 30 MG PO QPM for 30 Days, CAP 2 Refills Metoprolol Tartrate (Lopressor) 25 Mg Tab 25 MG PO DAILY, TAB Discharge Exam Patient doing well, eating all of her meals, ambulating independently. Review of Systems: Constitutional: No fever, No chills, No sweats, No weight loss, No weakness , No fatigue, No problem reported Eyes: No worsening of vision, No eye pain, No redness, No discharge, No diplopia, No problem reported ENT: No hearing loss, No unusual epistaxis, No nasal symptoms, No sore throat, No tinnitus, No dental problems, No trouble swallowing, No problem reported Respiratory: No cough, No sputum, No wheezing, No shortness of breath, No dyspnea on exertion, No dyspnea at rest, No hemoptysis, No problem reported Cardiovascular: No chest pain, No orthopnea, No PND, No edema, No claudication, No palpitations, No problem reported Abdomen: No pain, No nausea, No vomiting, No diarrhea, No constipation, No GI bleeding, No problem reported Musculoskeletal: No joint pain, No muscle pain, No swelling, No calf pain, No problem reported Genitourinary - Female: No dysuria, No urinary frequency, No urinary urgency , No urinary incontinence Neurologic: + memory loss, No paralysis, No weakness, No numbness/tingling, No vertigo, No balance problems, No problem reported Psychiatric: No depression symptoms, No anhedonism, No anxiety, No insomnia , No substance abuse, No problem reported Endocrine: No fatigue, No excessive thirst, No excessive urination, No problem reported Physical Exam: General Appearance: WD/WN, no apparent distress Eyes: normal inspection, EOMI, sclerae normal ENT: normal ENT inspection, hearing grossly normal, pharynx normal Neck: supple, no adenopathy, no JVD, trachea midline Respiratory/Chest: chest non-tender, lungs clear, normal breath sounds, no respiratory distress, no accessory muscle use Cardiovascular: regular rate, rhythm, no edema, no gallop, no JVD, no murmur , normal peripheral pulses Abdomen / GI: normal bowel sounds, non tender, soft, no organomegaly Extremities: normal inspection, no calf tenderness, normal capillary refill , no pedal edema, normal range of motion, pelvis stable Neurologic/Psychiatric: home care liaison II-XII nml as tested, no motor/sensory deficits , alert, normal mood/affect, normal reflexes, + pertinent finding (oriented to person, very poor short term memory, could not recall who I was, mold 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 memory 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) Skin: normal color, warm/dry, no rash Lymphatic: no adenopathy Hospital Course This is an 89 yo female with baseline dementia, more somnolent on admission, suggesting a metabolic encephalopathy on top of her dementia signs of UTI on initial testing, started on Rocephin Metabolic encephalopathy secondary to UTI treated initially with Rocephin, afebrile, labs normal, urine culture growing E coli - best sensitive d/c on Cipro 250mg BID x 6 more days encephalopathy completely resolved Dementia: unclear etiology, but has been chronic and progressing likely unsafe to live at home, falling frequently and wondering off property close care from children but unable to be there 24 hours a day PT/OT assessments CM consulted for placement - to [facility] today Prolonged QTc repeat EKG shows QTc of 486, was 504 on admission EKG also shows LBBB (chronic) and PVC's A fibb - Continue Metoprolol 12.5mg BID HTN - continue the Lisinopril and Metoprolol as noted above CAD - continue Plavix, decided to stop Aspirin (was taking 650mg BID, certainly no CAD benefit, only more harm could be done) GERD - continue protonix DVT prophylaxis - SCD , Heparin q12h DNR Plan: d/c to Cipro Total Time Spent: Greater than 30 minutes This includes examination of the patient, discharge planning, medication reconciliation, and communication with other providers. Discharge Instructions Please refer to the electronic Patient Visit Report (Discharge Instructions) for additional information. Follow-Up physician at [facility] Additional Copies To [facility]
--- NOTE | 2017-01-31 12:51 | Medical Student: [facility] ---
Med Student Progress Note Date of Service Jan 31, 2017. Subjective Pt evaluation today including: conversation w/ patient Pain: 0 PO Intake: fair Voiding: no voiding problems Ms Melina Link is a pleasantly demented 89 yo female brought to the ED two days ago after being found by police walking one mile from her home. She was found to have acute mental status deterioration secondary to a UTI. Antibiotics were started in the ED, and she appears to be returning to her baseline mental status today. She is pleasant but does not remember who I or Dr. Noyola are. She does admit to increasing forgetfulness and has to write everything down. Ms Link notes pain and burning with urination during the past 2 weeks. She denies headache, nausea, vomiting, diarrhea, constipation, chest pain or shortness of breath. Objective Vital Signs Date Time Temp Pulse Resp B/P (MAP) Pulse Ox O2 Delivery O2 Flow Rate FiO2 01/31/17 09:55 36.4 64 20 142/76 (98) 98 Room Air 01/31/17 08:00 Room Air 01/31/17 04:00 Room Air 01/31/17 00:00 Room Air 01/30/17 23:00 36.4 58 20 131/70 (90) 99 Room Air 01/30/17 16:20 Room Air 01/30/17 15:05 36.5 66 16 131/51 (77) 92 Room Air Physical Exam General Appearance: WD/WN, no apparent distress Eyes: bilateral eyes normal inspection, bilateral eyes EOMI ENT: hearing grossly normal Neck: trachea midline Respiratory/Chest: no respiratory distress, no accessory muscle use Neurologic/Psychiatric: alert, + pertinent finding (forgetful. Not anxious or depressed. Not agitated.) Skin: normal color, warm/dry Assessment and Plan Assessment and Plan: Ms Melina Link is a pleasantly demented 89 yo female on hospital day two with resolved metabolic encephalopathy and UTI. Individual assessment and plan are as follows: 1. UTI with metabolic encephalopathy: Resolved. Received one dose of pip/tazo in ED, on Rocephin 1g during last two days. Culture showing pansensitive e coli. Will discharge on cipro. WBC and other labs wnl. No fevers. Notes persistent burning with urination. 2. Dementia: Moderate, progressing. Son states noted decline in last 2-3 months. Currently lives alone with [facility] 3 hours x 4 days per week, meals on wheels 3x weekly. MSE 20 today. Plan for dementia unit at [facility]. PT/OT. 3. Chronic a fib: Continue metoprolol tartrate 25qd. 4. HTN: Continue amlodipine 5mg qpm. lisinopril 10mg qam. 5. Depression: Continue cymbalta 60qam. 6. CAD: Continue clipidogrel 75mg qpm. Discontinue asa 650 BID due to increased fall risk. 7. DVT Proph: SCDs, Heparin 5000 u q12. 8. Dispo: Discharge to [facility] on cipro. Discharge planning: nursing home facility ([facility])
== END 2017-01-31 13:34 ==
LOC: ENRESERVDT → ENRESERVTM → EDBD 11:24 → C.EDC 11:25 → C.MS2W 21:16
PROVIDERS: ADMIT Hospitalist; ATTEND Internal Medicine
DX: N39.0 Urinary tract infection, site not specified (principal); B96.20 Unspecified Escherichia coli [E. coli] as the cause of diseases classified elsewhere; G93.41 Metabolic encephalopathy; I10 Essential (primary) hypertension; F03.90 Unspecified dementia, unspecified severity, without behavioral disturbance, psychotic disturbance, mood disturbance, and anxiety; F32.9 Major depressive disorder, single episode, unspecified; I12.9 Hypertensive chronic kidney disease with stage 1 through stage 4 chronic kidney disease, or unspecified chronic kidney disease; N18.9 Chronic kidney disease, unspecified; I48.91 Unspecified atrial fibrillation; I25.10 Atherosclerotic heart disease of native coronary artery without angina pectoris; K21.9 Gastro-esophageal reflux disease without esophagitis; Z66 Do not resuscitate; Z79.82 Long term (current) use of aspirin; Z83.3 Family history of diabetes mellitus; Z82.49 Family history of ischemic heart disease and other diseases of the circulatory system; Z84.1 Family history of disorders of kidney and ureter

== ENCOUNTER → 2017-02-04 | Outpatient (CLI) | payer BC ==
[~2017-02-04] MED LIST changes: -ASPI-427 PO; +CIPR250T5 PO; -CYM/30 PO; -LPR25 PO; +METO25TA56 PO; +RISP0.258 PO; +RISP1TAB68 PO; +[UNRECOGNIZED DRUG - CODE] IM
== END ==
LOC: C.LABCC 08:42
PROVIDERS: ATTEND Internal Medicine
DX: F03.90 Unspecified dementia, unspecified severity, without behavioral disturbance, psychotic disturbance, mood disturbance, and anxiety (principal)

== ENCOUNTER → 2017-04-01 | Outpatient (CLI) | payer BC ==
[~2017-04-01] MED LIST changes: -CIPR250T5 PO; +CPR250 PO
[2017-04-01 18:25] LABS: URINE APPEARANCE CLEAR (CLEAR); URINE BILIRUBIN NEG (NEG); URINE COLOR YELLOW; URINE EPITHELIAL CELL AUTO 20-30 /lpf (0-5); URINE NITRITE NEG (NEG); URINE SPECIFIC GRAVITY 1.008 (1.000-1.030); UROBILINOGEN NEG (NEG)
[2017-04-01 18:30] LABS: MANUAL MICROSCOPIC REQUIRED? NO; REVIEW REQ? NO
== END | disposition home or self-care (01) ==
LOC: C.LABCC 17:49
PROVIDERS: ATTEND Internal Medicine
DX: R30.0 Dysuria (principal); R45.1 Restlessness and agitation

== ENCOUNTER → 2017-04-14 | Outpatient (CLI) | payer BC ==
[2017-04-14 19:45] LABS: URINE APPEARANCE CLEAR (CLEAR); URINE BILIRUBIN NEG (NEG); URINE COLOR YELLOW; URINE NITRITE NEG (NEG); URINE SPECIFIC GRAVITY 1.009 (1.000-1.030); UROBILINOGEN NEG (NEG)
[2017-04-14 19:56] LABS: MANUAL MICROSCOPIC REQUIRED? NO; REVIEW REQ? NO
--- NOTE | 2017-05-12 07:24 | CODING QUERY MEDICAL NECESSITY ---
CQSUPPORTING DIAGNOSIS NEEDED A supporting diagnosis is required for the test/procedure performed on this patient in order for us to be reimbursed by the patient's insurance. Please provide a supporting diagnosis for the following test/procedure listed below next to the test name along with your signature. *If there is no additional diagnosis for this patient that would support the following test/procedure please document that below next to the test/procedure. Test(s)/Procedure(s) that require a supporting diagnosis: MIRTHA 04/14/17 URINE CULTURE BACTERIAL Provider Signature: Date: Thank you Jaylyn Arita Health Information Management Once completed, please kindly fax back to [phone] For questions please call [phone]
== END | disposition home or self-care (01) ==
LOC: C.LABCC 11:56
PROVIDERS: ATTEND Internal Medicine
DX: Z09 Encounter for follow-up examination after completed treatment for conditions other than malignant neoplasm (principal); Z79.899 Other long term (current) drug therapy

== ENCOUNTER 2017-04-16 12:51 | Emergency (ER) | payer BC ==
[~2017-04-16] VITALS: Ht 147.3 cm; Wt 66.3 kg
[~2017-04-16 12:51] MED LIST changes: -RISP0.258 PO; -RISP1TAB68 PO; -[UNRECOGNIZED DRUG - CODE] IM
[2017-04-16 12:59] VITALS: O2SAT 95
[2017-04-16 13:00] VITALS: TEMP 36.4; Ht 147.3 cm; Wt 66.3 kg
--- NOTE | 2017-04-16 13:28 | EMERGENCY ROOM VISIT NOTE ---
History Report prepared by [place]: Keri Bello Under the Supervision of: Dr. Alf Fletcher M.D. First contact with patient: 13:12 Chief Complaint: SEIZURE Stated Complaint: ARM/LEG TREMORS/NUMBNESS Nursing Triage Summary: Patient presents via ALS ambulance from [facility] Patient reportedly was in the hair salon this morning and had right arm and left leg shaking described as tonic clonic activity lasting 30-60 seconds Patient was then evaluated by a GIS SOFTWARE ENGINEER and told them she had pain from her head to her toes She then was evaluated by a physician and said she felt "weakness" Patient has a psychiatric history Alert and oriented x 4 History of Present Illness The patient is a 89 year old female who presents to the Emergency Room with complaints of seizure like activity that occurred prior to arrival. She was brought to the ED via ALS from [facility] where she resides. EMS reports the patient was at the salon at [facility] this morning when she displayed "right arm and left leg shaking" and "tonic clonic activity" lasting "30 to 60 seconds ". She denies hitting her head but believes she briefly lost consciousness. She was evaluated by a SENIOR TECHNICAL RECRUITER, then a physician at [facility] and complained of pain "all over her body" and weakness, so she was referred to the ED. The patient currently denies any headache or neck pain here in the ED. She denies any previous history of seizures. Source of History: patient, EMS Onset: HEAD GREASE MAKER Position: other (global) Quality: other (seizure like activity) Timing: resolved Associated Symptoms: + weakness, No headache, No neck pain Review of Systems See HPI for pertinent positives and negatives. A total of ten systems were reviewed and were otherwise negative. Past Medical & Surgical Medical Problems: (1) Abdominal pain (2) Altered mental status (3) Chest pain (4) Diarrhea (5) Essential hypertension (6) Headache (7) Heart disease (8) Kidney disease (9) Metabolic encephalopathy (10) Myocardial infarction (11) Neck pain (12) Right ear pain (13) Right ear pain (14) Swallowing problem (15) UTI (urinary tract infection) Surgical Problems: (1) History of spinal surgery Family History Diabetes mellitus FH: heart disease Hypertension Kidney disease Social History Smoking Status: Never Smoker Alcohol Use: none Drug Use: none Marital Status: Housing Status: lives alone Occupation Status: retired Current/Historical Medications Scheduled Acetaminophen (Tylenol), 500-1,000 MG PO Q8 Amlodipine (Norvasc), 5 MG PO QPM Calcium Carbonate-Cholecalcife (Calcium 600 + D 600-200 mg-Unit), 1 TAB PO BID Clopidogrel Bisulfate (Plavix), 75 MG PO QPM Duloxetine Hcl (Cymbalta), 60 MG PO QAM Lamotrigine (Lamotrigine), 50 MG PO BID Lisinopril (Prinivil), 10 MG PO DAILY Metoprolol Tartrate (Lopressor) (Lopressor), 12.5 MG PO BID Nitroglycerin (Nitrostat), 0.4 MG UT PRN [place]-3 Fatty Acids ([place] 3), 1,000 MG PO BID Pantoprazole (Protonix), 40 MG PO DAILY Risperidone (Risperdal), 0.25 MG PO DAILY Risperidone (Risperdal), 1 MG PO DAILY Scheduled PRN Haloperidol (Haloperidol), 1 MG IM Q6H PRN for PHYSICAL AGGRESSION Allergies Coded Allergies: Cefuroxime (Verified Allergy, Unknown, RASH, 04/16/17) Erythromycin (Verified Allergy, Unknown, RASH, 04/16/17) Iodine (Verified Allergy, Unknown, 04/16/17) Macrolides (Verified Allergy, Unknown, "MYCINS" ALLERGY, PT UNSURE OF RXN , 04/16/17) Morphine (Verified Allergy, Unknown, 04/16/17) Propoxyphene (Verified Allergy, Unknown, "SICK STROKE" WHAT DOES THIS MEAN ???, 04/16/17) Alcohol (Verified Adverse Reaction, Severe, TONGUE THICK, 04/16/17) Codeine (Verified Adverse Reaction, Intermediate, cant sleep, 04/16/17) Sulfa Drugs (Verified Adverse Reaction, Intermediate, N&V, 04/16/17) Shrimp (Verified Adverse Reaction, Unknown, NAUSEA, 04/16/17) Physical Exam Vital Signs Date Time Temp Pulse Resp B/P (MAP) Pulse Ox O2 Delivery O2 Flow Rate FiO2 04/16/17 17:50 54 20 157/70 96 04/16/17 17:15 57 04/16/17 16:54 59 20 158/73 97 Room Air 04/16/17 14:45 58 16 139/65 95 Room Air 04/16/17 13:55 55 16 158/70 96 Room Air 04/16/17 13:09 59 04/16/17 13:00 36.4 64 16 148/70 95 Room Air 04/16/17 12:59 95 Room Air Physical Exam GENERAL: Awake, alert, well-appearing, in no distress HENT: Normocephalic, atraumatic. Oropharynx unremarkable. Dry mucous membranes. No evidence of tongue biting. EYES: Normal conjunctiva. Sclera non-icteric. NECK: Supple. No nuchal rigidity. FROM. No JVD. RESPIRATORY: Clear to auscultation. CARDIAC: Regular rate, normal rhythm. Extremities warm and well perfused. Pulses equal. ABDOMEN: Soft, non-distended. No tenderness to palpation. No rebound or guarding. No masses. RECTAL: Deferred. MUSCULOSKELETAL: Chest examination reveals no tenderness. The back is symmetrical on inspection without obvious abnormality. There is no CVA tenderness to palpation. No joint edema. LOWER EXTREMITIES: Calves are equal size bilaterally and non-tender. No edema. No discoloration. NEURO: Normal sensorium. No sensory or motor deficits noted. CNII-XII and cerebellar intact. SKIN: No rash or jaundice noted. Medical Decision & Procedures ER Provider Diagnostic Interpretation: Radiology results as stated below per my review and radiologist interpretation: CT SCAN OF THE BRAIN WITHOUT IV CONTRAST CLINICAL HISTORY: Change in mental status. Syncope. COMPARISON STUDY: CT of the brain dated 01/29/2017. TECHNIQUE: Unenhanced axial CT scan of the brain is performed from the vertex to the skull base. The patient was scanned twice due to motion artifact. CT DOSE: 782.75 mGycm FINDINGS: Brain parenchyma: There are age-related involutional changes noting mild subcortical and periventricular microangiopathic change. There is no hemorrhage, mass effect, or evidence of acute territorial ischemia by CT criteria. Temple-white matter is preserved. No extra-axial fluid collection is seen. Ventricles, sulci, cisterns: Prominent secondary to involutional change. Intracranial vasculature: There is atherosclerotic calcification of the cavernous carotid and vertebral arteries. Calvarium: The skeletal structures are osteopenic. No depressed calvarial fracture is seen. Sinuses and mastoids: The visualized paranasal sinuses are clear. There are bilateral mastoid effusions. Orbits: The bony orbits are grossly intact. There are bilateral ocular lens implants. IMPRESSION: 1. Senescent changes as above with no hemorrhage, mass effect, or evidence of acute territorial ischemia by CT criteria. 2. Bilateral mastoid effusions. Electronically signed by: Hong Arroyo M.D. 04/16/2017 2:34 PM CHEST ONE VIEW PORTABLE CLINICAL HISTORY: 89 years-old Female presenting with CHEST PAIN. TECHNIQUE: Portable upright AP view of the chest was obtained. COMPARISON: 01/29/2017. FINDINGS: Atherosclerosis of aortic arch. Normal cardiac silhouette. Lungs and pleural spaces clear. Degenerative changes of the glenohumeral joints, right greater than left. Anterior cervical fusion hardware noted. Upper abdomen normal. IMPRESSION: 1. No acute cardiopulmonary disease. Electronically signed by: Jamir Suazo M.D. 04/16/2017 1:54 PM Laboratory Results 04/16/17 12:45 Red Blood Count 3.80, Mean Corpuscular Volume 89.5, Mean Corpuscular Hemoglobin 29.2, Mean Corpuscular Hemoglobin Concent 32.6, Mean Platelet Volume 9.6, Neutrophils (%) (Auto) 61.2, Lymphocytes (%) (Auto) 24.3, Monocytes (%) (Auto) 12.1, Eosinophils (%) (Auto) 1.4, Basophils (%) (Auto) 0.3, Neutrophils # (Auto ) 3.53, Lymphocytes # (Auto) 1.40, Monocytes # (Auto) 0.70, Eosinophils # (Auto ) 0.08, Basophils # (Auto) 0.02 04/16/17 12:45 Test 04/16/17 12:45 04/16/17 13:35 04/16/17 14:36 White Blood Count 5.77 K/uL (4.8-10.8) Red Blood Count 3.80 M/uL (4.2-5.4) Hemoglobin 11.1 g/dL (12.0-16.0) Hematocrit 34.0 % (37-47) Mean Corpuscular Volume 89.5 fL (80-100) Mean Corpuscular Hemoglobin 29.2 pg (25-34) Mean Corpuscular Hemoglobin Concent 32.6 g/dl (32-36) Platelet Count 330 K/uL (130-400) Mean Platelet Volume 9.6 fL (7.4-10.4) Neutrophils (%) (Auto) 61.2 % Lymphocytes (%) (Auto) 24.3 % Monocytes (%) (Auto) 12.1 % Eosinophils (%) (Auto) 1.4 % Basophils (%) (Auto) 0.3 % Neutrophils # (Auto) 3.53 K/uL (1.4-6.5) Lymphocytes # (Auto) 1.40 K/uL (1.2-3.4) Monocytes # (Auto) 0.70 K/uL (0.11-0.59) Eosinophils # (Auto) 0.08 K/uL (0-0.5) Basophils # (Auto) 0.02 K/uL (0-0.2) RDW Standard Deviation 49.1 fL (36.4-46.3) RDW Coefficient of Variation 15.1 % (11.5-14.5) Immature Granulocyte % (Auto) 0.7 % Immature Granulocyte # (Auto) 0.04 K/uL (0.00-0.02) Anion Gap 6.0 mmol/L (3-11) Est Creatinine Clear Calc Drug Dose 27.9 ml/min Estimated GFR () 51.5 Estimated GFR (Non- 44.5 BUN/Creatinine Ratio 24.3 (10-20) Calcium Level 9.4 mg/dl (8.5-10.1) Phosphorus Level 3.7 mg/dl (2.5-4.9) Magnesium Level 2.0 mg/dl (1.8-2.4) Troponin I < 0.015 ng/ml (0-0.045) Urine Color YELLOW Urine Appearance CLEAR (CLEAR) Urine pH 7.0 (4.5-7.5) Urine Specific [place] 1.012 (1.000-1.030) Urine Protein NEG (NEG) Urine Glucose (UA) NEG (NEG) Urine Ketones NEG (NEG) Urine Occult Blood NEG (NEG) Urine Nitrite NEG (NEG) Urine Bilirubin NEG (NEG) Urine Urobilinogen NEG (NEG) Urine Leukocyte Esterase NEG (NEG) Lactic Acid Level 1.3 mmol/L (0.4-2.0) Laboratory results reviewed by me Medications Administered Medications (Trade) Dose Ordered Sig/Lauren Route Start Time Stop Time Status Last Admin Dose Admin Sodium Chloride 1,000 ml @ 999 mls/hr Q1H1M STAT IV 04/16/17 15:16 04/16/17 16:16 DC 04/16/17 15:20 999 MLS/HR ECG Indication: weakness Rate (beats per minute): 53 Rhythm: sinus bradycardia Findings: LBBB, other (Left axis deviation) Comparison ECG Date: Mildly increased [place] interval from prior EKG performed on January 30, 2017, otherwise no change ED Course 1321: The patient was evaluated in room C4. A complete history and physical exam was performed. 1516: NSS 1000 ml @ 999 mls/hr IV. 1708: I reevaluated the patient. She is looking much better. I discussed her results and discharge instructions and she verbalized complete understanding and agreement. Medical Decision I reviewed the patient's past medical history, medications, and the nursing notes as described above. Differential Diagnoses: Dehydration, electrolyte imbalance, stroke, seizure and syncope. Patient is a 89-year-old woman who presents to emergency department from her nursing facility with report of arm tremors in the setting of getting a haircut where staff was concerned for seizure activity per history of present illness. Arrival the patient is alert and oriented in no acute distress. Afebrile stable vital signs. On exam the patient has no evidence of tongue biting is neurologically intact. His unremarkable including WBC and lactate within normal limits. CT head unremarkable. Chest x-ray negative. BUN/ creatinine greater than 20 suggesting some mild dehydration which is consistent with the patient's dry clinical appearance. Given IV fluids. Considering unremarkable workup including normal WBC and lactate I am not concerned for any seizure activity. Considering the patient is well-appearing after IVF hydration, symptoms most likely related to mild dehydration in this elderly patient with dementia. Patient was cleared for discharge to return to her facility. Discharged per instructions. Medication Reconcilliation Current Medication List: was personally reviewed by me Blood Pressure Screening Patient's blood pressure: Elevated blood pressure Blood pressure disposition: Elevated BP felt to be situational Impression Primary Impression: Dehydration Scribe Attestation The scribe's documentation has been prepared under my direction and personally reviewed by me in its entirety. I confirm that the note above accurately reflects all work, treatment, procedures, and medical decision making performed by me. Departure Information Dispostion Home / Self-Care Referrals Jesica Neal (PCP) Patient Instructions ED Dehydration, My [facility] Additional Instructions Please follow up with your primary care physician in the next 1-3 days for reevaluation. Your labs showed you were slightly dehydrated and so you were given IV fluids. Otherwise, your exam, EKG, chest x-ray, CT scan, and lab results did not show signs of an emergent condition at this time. Drink plenty of fluids to ensure hydration. Return to the emergency department for worsening symptoms as described in the accompanying instructions.
[2017-04-16 13:47] LABS: BASO % 0.3 %; BASO ABS # 0.02 K/uL (0-0.2); COMPLETE YES; EOS % 1.4 %; IG% 0.7 %; LYMPH % 24.3 %; MEAN CELL VOLUME 89.5 fL (80-100); MEAN CORPUSCULAR HEMOGLOBIN 29.2 pg (25-34); MEAN CORPUSCULAR HGB CONC 32.6 g/dl (32-36); MEAN PLATELET VOLUME 9.6 fL (7.4-10.4); MONO % 12.1 %; NEUT % 61.2 %; PLATELET COUNT 330 K/uL (130-400); WHITE BLOOD COUNT 5.77 K/uL (4.8-10.8)
--- NOTE | 2017-04-16 13:55 | DIAGNOSTIC IMAGING REPORT ---
CHEST ONE VIEW PORTABLE CLINICAL HISTORY: 89 years-old Female presenting with CHEST PAIN. TECHNIQUE: Portable upright AP view of the chest was obtained. COMPARISON: 01/29/2017. FINDINGS: Atherosclerosis of aortic arch. Normal cardiac silhouette. Lungs and pleural spaces clear. Degenerative changes of the glenohumeral joints, right greater than left. Anterior cervical fusion hardware noted. Upper abdomen normal. IMPRESSION: 1. No acute cardiopulmonary disease. Electronically signed by: Jamir Suazo M.D. 04/16/2017 1:54 PM Dictated Date/Time: 04/16/2017 1:53 PM
[2017-04-16] MEDS ORDERED: [UNRECOGNIZED DRUG - CODE] IM (14:04)
[2017-04-16] MEDS ORDERED: METO25TA56 PO (14:04)
[2017-04-16] MEDS ORDERED: RISP1TAB68 PO (14:04)
[2017-04-16] MEDS ORDERED: RISP0.258 PO (14:04)
[2017-04-16 14:05] LABS: BLOOD UREA NITROGEN 27 mg/dl (7-18); BUN/CREATININE RATIO 24.3 (10-20); CALCIUM 9.4 mg/dl (8.5-10.1); CARBON DIOXIDE 28 mmol/L (21-32); CHLORIDE 97 mmol/L (98-107); GLUCOSE 118 mg/dl (70-99); POTASSIUM 4.1 mmol/L (3.5-5.1); SODIUM 131 mmol/L (136-145)
[2017-04-16 14:09] LABS: PHOSPHORUS 3.7 mg/dl (2.5-4.9)
[2017-04-16 14:12] LABS: URINE APPEARANCE CLEAR (CLEAR); URINE BILIRUBIN NEG (NEG); URINE COLOR YELLOW; URINE NITRITE NEG (NEG); URINE SPECIFIC GRAVITY 1.012 (1.000-1.030); UROBILINOGEN NEG (NEG)
[2017-04-16 14:21] LABS: MANUAL MICROSCOPIC REQUIRED? NO; REVIEW REQ? NO
--- NOTE | 2017-04-16 14:35 | DIAGNOSTIC IMAGING REPORT ---
CT SCAN OF THE BRAIN WITHOUT IV CONTRAST CLINICAL HISTORY: Change in mental status. Syncope. COMPARISON STUDY: CT of the brain dated 01/29/2017. TECHNIQUE: Unenhanced axial CT scan of the brain is performed from the vertex to the skull base. The patient was scanned twice due to motion artifact. CT DOSE: 782.75 mGycm FINDINGS: Brain parenchyma: There are age-related involutional changes noting mild subcortical and periventricular microangiopathic change. There is no hemorrhage, mass effect, or evidence of acute territorial ischemia by CT criteria. Temple-white matter is preserved. No extra-axial fluid collection is seen. Ventricles, sulci, cisterns: Prominent secondary to involutional change. Intracranial vasculature: There is atherosclerotic calcification of the cavernous carotid and vertebral arteries. Calvarium: The skeletal structures are osteopenic. No depressed calvarial fracture is seen. Sinuses and mastoids: The visualized paranasal sinuses are clear. There are bilateral mastoid effusions. Orbits: The bony orbits are grossly intact. There are bilateral ocular lens implants. IMPRESSION: 1. Senescent changes as above with no hemorrhage, mass effect, or evidence of acute territorial ischemia by CT criteria. 2. Bilateral mastoid effusions. Electronically signed by: Hong Arroyo M.D. 04/16/2017 2:34 PM Dictated Date/Time: 04/16/2017 2:32 PM
[2017-04-16] MEDS ORDERED: SODIUM CHLORIDE 0.9% 1000ML 1,000 ML IV STA (15:16)
[2017-04-16 17:50] VITALS: BP 157/70; PULSE 54; O2SAT 96
== END 2017-04-16 17:51 | disposition home or self-care (01) ==
LOC: EDBD 12:51 → C.EDC 12:56
DX: E86.0 Dehydration (principal); I12.9 Hypertensive chronic kidney disease with stage 1 through stage 4 chronic kidney disease, or unspecified chronic kidney disease; N18.9 Chronic kidney disease, unspecified; I51.9 Heart disease, unspecified; I25.2 Old myocardial infarction; Z79.899 Other long term (current) drug therapy; Z98.890 Other specified postprocedural states; Z88.2 Allergy status to sulfonamides; Z88.5 Allergy status to narcotic agent; Z88.8 Allergy status to other drugs, medicaments and biological substances; Z91.018 Allergy to other foods; Z91.09 Other allergy status, other than to drugs and biological substances; Z83.3 Family history of diabetes mellitus; Z82.49 Family history of ischemic heart disease and other diseases of the circulatory system; Z84.1 Family history of disorders of kidney and ureter

== ENCOUNTER → 2017-05-02 | Outpatient (CLI) | payer BC ==
[~2017-05-02] MED LIST changes: -CPR250 PO; +RISP0.258 PO; +RISP1TAB68 PO; +[UNRECOGNIZED DRUG - CODE] IM
[2017-05-02 17:47] LABS: URINE APPEARANCE CLEAR (CLEAR); URINE BILIRUBIN NEG (NEG); URINE COLOR YELLOW; URINE NITRITE NEG (NEG); URINE PH 6.5 (4.5-7.5); UROBILINOGEN NEG (NEG)
[2017-05-02 17:54] LABS: MANUAL MICROSCOPIC REQUIRED? NO; REVIEW REQ? NO
== END | disposition home or self-care (01) ==
LOC: C.LABCC 17:14
PROVIDERS: ATTEND Internal Medicine
DX: R39.89 Other symptoms and signs involving the genitourinary system (principal)

== ENCOUNTER → 2017-05-19 | Outpatient (CLI) | payer BC ==
[2017-05-19 09:51] LABS: BASO % 0.3 %; BASO ABS # 0.02 K/uL (0-0.2); COMPLETE YES; EOS % 3.1 %; HEMATOCRIT 34.6 % (37-47); IG% 0.3 %; LYMPH % 34.6 %; LYMPH ABS # 2.01 K/uL (1.2-3.4); MEAN CELL VOLUME 91.3 fL (80-100); MEAN CORPUSCULAR HEMOGLOBIN 28.5 pg (25-34); MEAN CORPUSCULAR HGB CONC 31.2 g/dl (32-36); MEAN PLATELET VOLUME 9.8 fL (7.4-10.4); MONO % 9.8 %; NEUT % 51.9 %; PLATELET COUNT 290 K/uL (130-400); RED BLOOD COUNT 3.79 M/uL (4.2-5.4); WHITE BLOOD COUNT 5.81 K/uL (4.8-10.8)
[2017-05-19 10:14] LABS: BLOOD UREA NITROGEN 27 mg/dl (7-18); BUN/CREATININE RATIO 24.9 (10-20); CALCIUM 9.8 mg/dl (8.5-10.1); CARBON DIOXIDE 28 mmol/L (21-32); CHLORIDE 102 mmol/L (98-107); GLUCOSE 84 mg/dl (70-99); POTASSIUM 4.5 mmol/L (3.5-5.1); SODIUM 136 mmol/L (136-145)
[2017-05-19 10:24] LABS: ALB/GLOB RATIO 0.8 (0.9-2); ALKALINE PHOSPHATASE 99 U/L (45-117); ALT/SGPT 11 U/L (12-78); AST/SGOT 20 U/L (15-37); THYROID STIMULATING HORMONE 0.793 uIu/ml (0.300-4.500)
== END ==
LOC: C.LABCC 08:49
PROVIDERS: ATTEND Internal Medicine
DX: R00.1 Bradycardia, unspecified (principal)